=== PATIENT | female | born 1985 | race African-American/Black ===

== ENCOUNTER 2019-08-24 09:24 | Emergency (ER) | payer OTHER ==
[~2019-08-24] VITALS: Ht 162.6 cm; Wt 137.9 kg
[2019-08-24 09:46] LABS: ABSOLUTE NEUTROPHILS 5.9 thou/uL (1.4-8.2); BASOPHILS 0.7 % (0.0-2.0); EOSINOPHILS 2.3 % (0.0-3.0); HEMATOCRIT 40.9 % (37.0-47.0); HEMOGLOBIN 13.5 gm/dL (12.0-15.0); LYMPHOCYTES 23.9 % (24.0-44.0); MCH 28.6 pg (26.0-34.0); MCV 86.6 fL (80.0-100.0); PLATELET COUNT 357 thou/uL (150-400); POLYS 68.1 % (36.0-66.0); RBC 4.72 mil/uL (4.20-5.00); RDW 15.7 % (10.5-14.5); WBC 8.6 thou/uL (4.0-11.0)
[2019-08-24 09:56] LABS: INR 1.1
[2019-08-24 10:01] LABS: CALCIUM 9.6 mg/dL (8.5-10.1); CREATININE 1.1 mg/dL (0.6-1.0)
[2019-08-24 11:37] LABS: URINE BILIRUBIN NEGATIVE (Negative); URINE BLOOD NEGATIVE (Negative); URINE CLARITY CLEAR; URINE COLOR YELLOW; URINE GLUCOSE-RANDOM* NEGATIVE (Negative); URINE KETONES NEGATIVE (Negative); URINE LEUKOCYTES-REFLEX NEGATIVE (Negative); URINE NITRITE-REFLEX NEGATIVE (Negative); URINE PROTEIN (DIPSTICK) TRACE (Negative); URINE SPECIFIC GRAVITY 1.015 (1.005-1.035); URINE UROBILINOGEN 0.2 E.U./dl (0.2-1.0)
[2019-08-24 12:24] VITALS: BP 178/94
== END 2019-08-24 13:16 | disposition home or self-care (01) ==
LOC: ER 09:24
PROVIDERS: Emergency Medicine
DX: G40.909 Epilepsy, unspecified, not intractable, without status epilepticus (principal); I10 Essential (primary) hypertension; Z86.718 Personal history of other venous thrombosis and embolism; Z91.018 Allergy to other foods

== ENCOUNTER → 2019-10-11 | Outpatient (CLI) | payer OTHER | LOC: MRI 10:11 | DX: R56.9 Unspecified convulsions (principal); Q04.8 Other specified congenital malformations of brain; G47.33 Obstructive sleep apnea (adult) (pediatric); I10 Essential (primary) hypertension; E66.01 Morbid (severe) obesity due to excess calories ==

== ENCOUNTER 2019-10-22 10:26 | Emergency (ER) | payer OTHER ==
[~2019-10-22] VITALS: Ht 162.6 cm; Wt 137.9 kg
[2019-10-22] MEDS ORDERED: EQUETRO300 MG PO (10:55)
[2019-10-22] MEDS ORDERED: AMLODIPINE BESY10 MG PO (10:56)
[2019-10-22] MEDS ORDERED: LISINOPRIL2.5 MG PO (10:56)
[2019-10-22] MEDS ORDERED: COUMADIN 5 MG TA5 M1 PO (10:57)
[2019-10-22 12:29] LABS: ABSOLUTE NEUTROPHILS 3.9 thou/uL (1.4-8.2); BASOPHILS 0.6 % (0.0-2.0); EOSINOPHILS 2.5 % (0.0-3.0); HEMOGLOBIN 12.5 gm/dL (12.0-15.0); LYMPHOCYTES 26.8 % (24.0-44.0); MCH 27.8 pg (26.0-34.0); MCHC 32.2 g/dL (28.0-37.0); MCV 86.4 fL (80.0-100.0); MONOCYTES 6.1 % (1.0-8.0); PLATELET COUNT 315 thou/uL (150-400); RBC 4.51 mil/uL (4.20-5.00); RDW 15.9 % (10.5-14.5); WBC 6.1 thou/uL (4.0-11.0)
[2019-10-22 12:46] LABS: ANION GAP 10 mmol/L (7-16); BUN 19 mg/dL (7-18); CHLORIDE 103 mmol/L (98-107); CO2 26 mmol/L (21-32); CREATININE 1.1 mg/dL (0.6-1.0); GLUCOSE 72 mg/dL (74-106); POTASSIUM 4.3 mmol/L (3.5-5.1); SODIUM 139 mmol/L (136-145)
[2019-10-22 12:52] LABS: ALBUMIN 3.7 g/dL (3.4-5.0); SGOT 27 U/L (15-37); SGPT 38 U/L (30-65); TOTAL BILIRUBIN < 0.1 mg/dL (<0.1-1.0); TOTAL PROTEIN 7.6 g/dL (6.4-8.2)
[2019-10-22] MEDS ORDERED: ZESTRIL5 MG PO (13:30)
[2019-10-22 13:58] VITALS: BP 156/85
--- NOTE | 2019-10-23 08:28 | EKG ---
[facility] [place] [address] ELECTROCARDIOGRAM REPORT Name: SHELBY YUEN Room [facility]: [facility] [id number] Admission: 10/22/19 Attend Phys: Discharge: 10/22/19 Date of : 81 Report #: [id number] THIS REPORT FOR: //name// [facility] ED Test Date: 2019-10-22 Test Time: 11:42:29 Pat Name: SHELBY YUEN Department: Room: Gender: F Poker Room Manager: TAMIKO : 1985 Requested By: Claudia Valentino Order Number: [id number] MD: Wayne Cordoba Measurements Intervals [place] Rate: 66 P: 29 NH: 157 QRS: -24 QRSD: 91 T: -8 QT: 414 QTc: 434 Interpretive Statements Sinus rhythm Abnormal R-wave progression, late transition Borderline T abnormalities, inferior leads Borderline ST elevation, lateral leads No previous ECG available for comparison Electronically Signed On 10-23-2019 8:27:53 [employer] by Wayne Cordoba [email or web address] <ELECTRONICALLY SIGNED> By: Wayne Cordoba MD, [facility] 10/23/19 0827 D: [id number] Wayne Cordoba MD, FACC /EPI
== END 2019-10-22 14:00 | disposition home or self-care (01) ==
LOC: ER 10:26
PROVIDERS: Physician Assistant
DX: I10 Essential (primary) hypertension (principal); E78.00 Pure hypercholesterolemia, unspecified; G40.909 Epilepsy, unspecified, not intractable, without status epilepticus; Z91.02 Food additives allergy status; Z88.8 Allergy status to other drugs, medicaments and biological substances

== ENCOUNTER → 2020-04-17 | Outpatient (CLI) | payer OTHER ==
[~2020-04-17] MED LIST: AMLODIPINE BESY10 MG PO; COUMADIN 5 MG TA5 M1 PO; EQUETRO300 MG PO; LISINOPRIL2.5 MG PO; ZESTRIL5 MG PO
--- NOTE | 2020-04-17 17:37 | EEG ---
[facility] [place] [address] ELECTROENCEPHALOGRAM Name: SHELBY YUEN Room #: REG [facility]..#: [id number] Admission: 04/17/20 Attend Phys: Prem Prado MD Discharge: Date of : 81 Report #: [id number] THIS REPORT FOR: //name// CC: SANDRO Prado Physician staff DATE OF SERVICE: 04/17/2020 This patient has a history of seizure. EEG is being done to further evaluate that. EEG was done by placing the electrode by standard 10-20 system of electrode placement. Both referential and sequential montages were used for recording. Background activity in this patient is about 10 Hz and 40 microvolts. There is a symmetrical activity. Photic stimulation is unremarkable. The patient became drowsy and that is associated with bilateral slowing and vertex sharp waves. Throughout the record, no active epileptiform activity was noticed. IMPRESSION: This patient's EEG is within normal limits. No active epileptiform activity was noticed. <ELECTRONICALLY SIGNED> By: Prem Prado MD 04/17/20 1737 1614 1626 Prem Prado MD /nt
== END ==
LOC: NEURO 09:56
PROVIDERS: ATTEND Psychiatry & Neurology Neuromuscular Medicine
DX: R56.9 Unspecified convulsions (principal)